=== PATIENT | female | born 1935 | race Caucasian/White ===

== ENCOUNTER → 2016-06-11 | Outpatient (CLI) | payer OTHER ==
[~2016-06-11] MED LIST: BIOF500T PO; CHLO50TA PO; CINN500C13 PO; CLOP1TAB15 PO; COEN1CAP28 PO; FENO54TA PO; FLAX12003 PO; KRIL1CAP24 PO; LEVO125T72 PO; LUTE15CA PO; MAGNESIUM PO; METO50TA16 PO; MIRA100T PO; MULT-610 PO; NIAC100T5 PO; OXYC-57 PO; POTA10CA28 PO; POTA20TA16 PO; RESV100C PO; RISE150T PO; TURM500T PO; VITA1TAB4 PO; VTMD1000 PO; ZNTT/150 PO; [UNRECOGNIZED DRUG - OTHER] PO; [UNRECOGNIZED DRUG - OTHER] PO
[2016-06-11 13:29] LABS: ALT/SGPT 19 U/L (12-78); AST/SGOT 16 U/L (15-37); BLOOD UREA NITROGEN 18 mg/dl (7-18); BUN/CREATININE RATIO 21.3 (10-20); CALCIUM 9.9 mg/dl (8.5-10.1); CARBON DIOXIDE 32 mmol/L (21-32); CHLORIDE 101 mmol/L (98-107); CHOLESTEROL 212 mg/dl (0-200); CREATININE 0.82 mg/dl (0.60-1.20); GLUCOSE 90 mg/dl (70-99); MAGNESIUM 1.6 mg/dl (1.8-2.4); POTASSIUM 3.4 mmol/L (3.5-5.1); SODIUM 139 mmol/L (136-145); TRIGLYCERIDES 107 mg/dl (0-150); VERY LOW DENSITY LIPOPROT CALC 21 mg/dl
[2016-06-11 13:39] LABS: HDL CHOLESTEROL 70 mg/dl; LDL CHOLESTEROL CALCULATED 121 mg/dl; THYROID STIMULATING HORMONE 0.407 uIu/ml (0.300-4.500)
== END | disposition home or self-care (01) ==
LOC: C.LABMFLN 11:59
PROVIDERS: ATTEND Family Medicine
DX: E78.5 Hyperlipidemia, unspecified (principal); E03.9 Hypothyroidism, unspecified; I10 Essential (primary) hypertension; M81.0 Age-related osteoporosis without current pathological fracture; E83.42 Hypomagnesemia

== ENCOUNTER → 2016-06-20 | Outpatient (CLI) | payer OTHER | END | disposition home or self-care (01) | LOC: C.LABMFLN 08:30 | PROVIDERS: ATTEND Family Medicine | DX: R35.0 Frequency of micturition (principal) ==

== ENCOUNTER 2016-08-16 06:53 | Inpatient (IN) | payer OTHER ==
[2016-08-14 08:28] VITALS: BMI 33.0
--- NOTE | 2016-08-14 09:16 | PAT Medication Instructions ---
Service Date August 14, 2016. Current Home Medication List Bioflavonoid Products (Jennifer-C), 1 TAB PO QPM Chlorthalidone (Chlorthalidone), 25 MG PO QAM Cholecalciferol (Vitamin D3), 1 TAB PO QPM Cinnamon (Cinnamon Extract), 1,000 MG PO QPM Clopidogrel (Plavix), 75 MG PO QAM Coenzyme Q10 (Ubidecarenone) (Co Q10), 200 MG PO QAM Fenofibrate (Tricor), 54 MG PO QAM Flaxseed (Linseed) (Flaxseed Oil), 1 CAP PO QAM Krill Oil (Krill Oil 500 mg), 1 CAP PO HS Levothyroxine Sodium (Synthroid), 125 MCG PO QAM Lutein-Zeaxanthin (Lutein), 1 CAP PO HS Metoprolol Tartrate (Lopressor) (Lopressor), 50 MG PO BID Mirabegron (Myrbetriq Er), 25 MG PO QPM Multiple Vitamins W/ Minerals (Centrum Adults), 1 TAB PO QAM Niacin (Niacin), 100 MG PO QPM Oxycodone/Acetaminophen 5MG/325MG (Percocet 5MG/325MG), 1 TABLET PO Q6H PRN for Pain Potassium Chloride (Micro-K Ext Rel), 20 MEQ PO 1200 Potassium Chloride (Micro-K Ext Rel), 40 MEQ PO 1700 Potassium Ext Rel (Klor-Con), 20 MEQ PO 2100 Ranitidine (Zantac), 150 MG PO QPM Resveratrol (Resveratrol), 1 CAP PO QAM Risedronate Sodium (Actonel), 1 TAB PO MONTHLY Turmeric (Curcuma Longa) (Turmeric), 1 TAB PO QPM Vitamin E (Vitamin E), 1 TAB PO QAM [Cholesterol Com], 1 TAB PO QID [Magnesium], 64 MG PO BID [Seaweed Extract], 1 TAB PO QPM Medication Instructions For Your Scheduled Surgery Clopidogrel (Plavix), 75 MG PO QAM (hold 5 days prior to surgery per surgeon and PCP recommendations) - Hold the following medications 5 days prior to surgery per surgeon instructions: Seaweed Extract, 1 TAB PO QPM Turmeric (Curcuma Longa) (Turmeric), 1 TAB PO QPM Vitamin E (Vitamin E), 1 TAB PO QAM Krill Oil (Krill Oil 500 mg), 1 CAP PO HS Flaxseed (Linseed) (Flaxseed Oil), 1 CAP PO QAM Coenzyme Q10 (Ubidecarenone) (Co Q10), 200 MG PO QAM - Hold the following medications starting today 08/14/16: Resveratrol (Resveratrol), 1 CAP PO QAM Cholesterol Complete 1 TAB PO QID Lutein-Zeaxanthin (Lutein), 1 CAP PO HS Cinnamon (Cinnamon Extract), 1,000 MG PO QPM - Hold the following medications day prior to and morning of surgery: Fenofibrate (Tricor), 54 MG PO QAM - Hold the following medications evening prior to surgery: Niacin (Niacin), 100 MG PO QPM - Hold the following medications the morning of surgery: Risedronate Sodium (Actonel), 1 TAB PO MONTHLY (can take day after or day before surgery) Magnesium, 64 MG PO BID Potassium Ext Rel (Klor-Con) Multiple Vitamins W/ Minerals (Centrum Adults), 1 TAB PO QAM Chlorthalidone (Chlorthalidone), 25 MG PO QAM - Take the following medications the morning of surgery with a sip of water: Oxycodone/Acetaminophen 5MG/325MG (Percocet 5MG/325MG), 1 TABLET PO Q6H PRN for Pain (can take up to four hours prior to surgery if needed) Metoprolol Tartrate (Lopressor) (Lopressor), 50 MG PO BID Levothyroxine Sodium (Synthroid), 125 MCG PO QAM - Take the following medications as scheduled the night before surgery: Ranitidine (Zantac), 150 MG PO QPM Magnesium, 64 MG PO BID Oxycodone/Acetaminophen 5MG/325MG (Percocet 5MG/325MG), 1 TABLET PO Q6H PRN for Pain Mirabegron (Myrbetriq Er), 25 MG PO QPM Metoprolol Tartrate (Lopressor) (Lopressor), 50 MG PO BID Cholecalciferol (Vitamin D3), 1 TAB PO QPM Bioflavonoid Products (Jennifer-C), 1 TAB PO QPM If you have any questions please call us at [phone] or [phone] ( Aniya) or [phone]
[2016-08-14 10:03] LABS: PROTHROMBIN TIME (PATIENT) 10.7 SECONDS (9.0-12.0)
[2016-08-14 10:51] LABS: ESTIMATED AVERAGE GLUCOSE 103 mg/dl; HA1C FLAG Normal (Normal)
--- NOTE | 2016-08-15 15:42 | HISTORY & PHYSICAL EXAMINATION ---
DATE OF ADMISSION: 08/16/2016 CHIEF COMPLAINT: Left shoulder injury. HISTORY OF PRESENT ILLNESS: This is an 81-year-old female patient of Dr. Pollard complaining of a left shoulder injury status post a fall at her home. She has been diagnosed with a fractured proximal humerus which was confirmed with CT scanning. The patient wishes to proceed with a left fracture reverse total shoulder arthroplasty. PAST MEDICAL HISTORY: Heart murmur, hypertension, hypercholesterolemia, history of TIA, hypothyroidism, spine problems, sciatica, acid reflux, history of basal cell carcinoma. SOCIAL HISTORY: Nonsmoker, nondrinker. FAMILY HISTORY: Noncontributory. REVIEW OF SYSTEMS: The patient complains of left shoulder pain and decreased function. Otherwise, denies any shortness of breath, chest pain, nausea, vomiting or other joint complaints. MEDICATIONS: Include Synthroid 125 mcg on the first day of each month, Actonel 150 mg daily, magnesium 64 mg daily, Plavix 75 mg daily, metoprolol 50 mg daily, CoQ10 200 mg p.o. daily, vitamin E daily, fenofibrate 54 mg daily, cholesterol complete 4 tablets daily, flaxseed oil daily, Centrum Silver daily, cinnamon, aiden potassium, brown seaweed, potassium chloride, vitamin D, gluten, Krill oil daily, chlorthalidone 25 mg daily, Turmeric 500 mg daily, metoprolol 50 mg daily, niacin daily, ranitidine 150 mg daily, magnesium daily, Percocet as needed and Myrbetriq for overactive bladder as needed. ALLERGIES: INCLUDE PENICILLIN. PHYSICAL EXAMINATION: GENERAL: Well-developed, well-nourished 81-year-old female of Dr. Pollard in no acute distress. She is alert and oriented x3 and pleasant. HEAD, EYES, EARS, NOSE, AND THROAT: Normocephalic, atraumatic. Extraocular motions are intact. Pupils are equal and reactive to light. HEART: Regular rate and rhythm, no murmurs appreciated. LUNGS: Clear. ABDOMEN: Soft, nontender, bowel sounds present. EXTREMITIES: Left shoulder range of motion and strength were deferred due to her injury. She did have some bruising and ecchymosis over the shoulder. She had good range of motion of her elbow, wrist and hand. Neurologically and neurovascularly she is intact in her left upper extremity. DIAGNOSES: Left shoulder proximal humerus fracture. She has a history of a heart murmur, hypertension, hypercholesterolemia, TIA, hypothyroidism, spine problems, sciatica, acid reflux, basal cell carcinoma. PLAN: The patient was advised of her diagnosis. Indications, risks, benefits, and postop course have all been reviewed. The patient wishes to proceed with a left fracture reverse total shoulder arthroplasty. Necessary consent forms, preoperative testing and clearances will be obtained. YOLANDA
[2016-08-16] VITALS (10 sets, daily range): BP systolic 101–168; BP diastolic 63–76; PULSE 58–75; TEMP 36.3–36.5; O2SAT 92–96; Ht 144.8 cm; Wt 68.2 kg
[~2016-08-16] VITALS: Ht 144.8 cm; Wt 68.2 kg
[~2016-08-16 06:53] MED LIST changes: +ACETAMINOPHEN 500 MG TAB PO SCH; +CLINDAMYCIN 600 MG/54 ML D5W 54 ML IV SCH; +CeleBREX 200 MG CAP PO SCH; +DEXAMETHASONE 4 MG TAB PO SCH; +FAMOTIDINE 20 MG TAB PO SCH; +GABAPENTIN 300 MG CAP PO SCH; +LACTATED RINGER'S 1000ML IV SCH; +METOCLOPRAMIDE HCL 10 MG TAB PO SCH
[2016-08-16] MEDS ORDERED: ROPIVACAINE 0.5% 5 MG/ML 30 ML VIAL ONE (07:03)
[2016-08-16] MEDS ORDERED: BUPIVACAINE/EPINEPHRINE 0.25% 1:200,000 30 ML VIAL ONE (07:03)
[2016-08-16] MEDS ORDERED: CLONIDINE HCL 100 MCG/ML SYRINGE ONE (07:04)
[2016-08-16] MEDS ORDERED: VANCOMYCIN 1GM/270ML NSS 270 ML IV SCH (07:30)
[2016-08-16] MEDS ORDERED: PHENYLEPHRINE 100MCG/ML 5ML SYR IV PRN (08:45)
[2016-08-16] MEDS ORDERED: FENTANYL CITRATE INJ 50 MCG/1 ML 2 ML VIAL IV PRN (08:45)
[2016-08-16] MEDS ORDERED: ATROPINE SULFATE 0.1 MG/ML 5ML SYR IV PRN (08:45)
[2016-08-16] MEDS ORDERED: LABETALOL HCL IV 5 MG/ML 20ML IV PRN (08:45)
[2016-08-16] MEDS ORDERED: ONDANSETRON INJ 2 MG/ML 2 ML VIAL IV PRN ×2 (08:45→14:00)
[2016-08-16] MEDS ORDERED: HYDROmorphone INJ 2 MG/ML SYR/VIAL IV PRN (08:45)
[2016-08-16] MEDS ORDERED: NALOXONE HCL 0.4 MG/1 ML VIAL/CARP IV PRN ×2 (08:45→14:00)
[2016-08-16] MEDS ORDERED: MEPERIDINE HCL 25 MG/ML CARP IV PRN (08:45)
[2016-08-16] MEDS ORDERED: EpHEDrine SULFATE INJ 50 MG/ML AMP IV PRN (08:45)
[2016-08-16] MEDS ORDERED: FLUMAZENIL 0.1 MG/1 ML 10 ML VIAL IV PRN (08:45)
[2016-08-16] MEDS ORDERED: LIDOCAINE HCL 2% 2 ML VIAL (20MG/ML) ONE (09:05)
[2016-08-16] MEDS ORDERED: ROCURONIUM BROMIDE 10 MG/ML 5 ML VIAL ONE ×2 (09:05→11:43)
[2016-08-16] MEDS ORDERED: MIDAZOLAM HCL 1 MG/ML 2ML VIAL ONE (09:05)
[2016-08-16] MEDS ORDERED: FENTANYL CITRATE INJ 50 MCG/1 ML 2 ML VIAL ONE ×2 (09:05→14:26)
[2016-08-16] MEDS ORDERED: NEOSTIGMINE METHYLSULFATE 5 MG/5 ML SYR ONE (09:05)
[2016-08-16] MEDS ORDERED: PROPOFOL IV EMULSION 10 MG/ML 20 ML VIAL IV ONE (09:05)
[2016-08-16] MEDS ORDERED: SUCCINYLCHOLINE CHLORIDE 20 MG/ML 10 ML VIAL IV ONE (09:05)
[2016-08-16] MEDS ORDERED: GLYCOPYRROLATE INJ 0.2 MG/ML VIAL ONE (09:05)
[2016-08-16] MEDS ORDERED: EpHEDrine SULFATE 50MG/5ML SYR ONE (09:07)
[2016-08-16] MEDS ORDERED: NURSING VERBAL MED ORDER ONE (09:45)
--- NOTE | 2016-08-16 09:54 | History & Physical Bridge Note ---
H&P Re-Evaluation Bridge Note: I have examined the patient, reviewed the History & Physical and in the interval since the performance of the History & Physical I have noted the following changes of clinical significance: No changes noted
[2016-08-16] MEDS ORDERED: BACITRACIN 50000 UNIT VIAL ONE (10:09)
[2016-08-16] MEDS ORDERED: CLINDAMYCIN 600 MG/54 ML D5W IV ONE (10:15)
[2016-08-16] MEDS ORDERED: PHENYLEPHRINE HCL INJ 10 MG/ML VIAL ONE (11:20)
[2016-08-16] MEDS ORDERED: EpINEphrine HCL INJ 1 MG/ML 5ML SYRINGE ONE (12:35)
[2016-08-16] MEDS ORDERED: ONDANSETRON INJ 2 MG/ML 2 ML VIAL ONE (13:05)
[2016-08-16] MEDS ORDERED: DEXAMETHASONE SOD INJ 4 MG/ML VIAL ONE (13:05)
--- NOTE | 2016-08-16 13:37 | [facility] Operative Report ---
Operative Report Operative Date Aug 16, 2016. Pre-Operative Diagnosis Left shoulder proximal humerus fracture displaced Post-Operative Diagnosis same ,comminution and osteopenia Procedure(s) Performed reversed total shoulder replacement for fracture with bone grafting and repair of tuberosities and biceps tenodesis Surgeon Dr. Katie Lopez Document Control Specialist Surgeon(s) Michael Jessica PA-C Estimated Blood Loss 300mL Findings as above Specimens A: left humeral head Drains 2 hemovac Anesthesia general and regional Complication(s) None Disposition Recovery Room / PACU Indications displaced humeral head fracture delayed healing and pain I attest to the content of the Intraoperative Record and any orders documented therein. Any exceptions are noted below.
[2016-08-16] MEDS ORDERED: MoRPHine SULFATE 2 MG/ML CARP IV PRN (14:00)
[2016-08-16] MEDS ORDERED: MAGNESIUM HYDROXIDE SUSP 30 ML UDC PO PRN (14:00)
[2016-08-16] MEDS ORDERED: BISACODYL 10 MG SUPP PR PRN (14:00)
[2016-08-16] MEDS ORDERED: ZOLPIDEM TARTRATE 5 MG TAB PO PRN (14:00)
[2016-08-16] MEDS ORDERED: SOD PHOSPHATE/SOD BIPHOSPHATE ENEMA 132 ML BTL PR PRN (14:00)
--- NOTE | 2016-08-16 14:34 | DIAGNOSTIC IMAGING REPORT ---
LEFT SHOULDER MIN 2 VIEWS ROUTINE CLINICAL HISTORY: Postop examination COMPARISON: None. DISCUSSION: There are postsurgical changes of a reverse total left shoulder arthroplasty. There is no dislocation. Overlying skin dayna and surgical drains are visualized. There is air within the soft tissues consistent with history of recent surgery. There are left basilar atelectatic changes. IMPRESSION: Postsurgical changes of a reverse total left shoulder arthroplasty. No fractures or dislocations identified. Electronically signed by: Josiah Sierra M.D. 08/16/2016 2:33 PM Dictated Date/Time: 08/16/2016 2:32 PM
--- NOTE | 2016-08-16 14:46 | OPERATIVE REPORT ---
DATE OF OPERATION: 08/16/2016 INDICATION FOR PROCEDURE: The patient is an 81-year-old female who injured her left shoulder and sustained a proximal humerus fracture. She was seen by another orthopedic surgeon. He was attempting to treat this conservatively. She is 3-4 weeks post-injury and has 100% displaced proximal humerus fracture with some periosteal healing that is occurring but definitely not a union. We discussed the patient the option of letting her go onto a malunion if possible or doing delayed reverse replacement or just proceeding with reverse shoulder replacement at this point. If she had a malunion she would have significant decreased function in her shoulder and she chose to proceed with replacement and improve her level of function more predictably. PREOPERATIVE DIAGNOSIS: Left displaced proximal humerus fracture with delayed healing. POSTOPERATIVE DIAGNOSES: Same with comminution with biceps tendon impingement across the fracture site. Partial avulsion of pectoralis tendon with comminuted fragment. PROCEDURE: Fracture reversed total shoulder arthroplasty with tuberosity repair and bone grafting. SURGEON: Dr. Lopez. BOOM TRUCK DRIVER: Michael Jessica PA-C. ANESTHESIA: Regional block general. OPERATION AND FINDINGS: OPERATIVE PROCEDURE: The patient was taken to operating room. She had a regional block anesthetic placed first, placed under general anesthetic. Placed in a 40 degree beach chair position. A towel was placed in the medial border of her left scapula. She was translated to left side of the bed. Her shoulder was moved off the bed as necessary. She had a foam headrest placed. She had protective eyewear placed. She had a Beltre catheter placed. She had TEDs and SCDs placed. All extremities were padded. Her left shoulder was then sterilely prepped and draped with ChloraPrep. An anterior deltopectoral approach was performed to the left shoulder. Longitudinal incision was made in the deltopectoral interval. Skin was incised sharply. The subcutaneous tissues were divided down to the fascia. The deltopectoral interval was identified and the cephalic vein was dissected out and retracted laterally with the deltoid. The pectoralis was then retracted medially. We dissected down through the deltopectoral area, we noted there was a large fragment of comminuted bone anterior to the shaft which in part was part of the attachment of the upper pectoralis tendon. We did release some of the pec tendon off of this fragment for some better exposure and we did identify the biceps tendon at that time. The biceps tendon was noted to be tenting over the fracture site. The humeral head was displaced laterally and the humeral shaft anteromedially in direction. There were some bone context still and there was some callus forming, but the head was essentially off the shaft. The periosteum was stripped slightly around the proximal humeral shaft so we could identify the shaft location leaving the deltoid attachment and pec attachment intact, otherwise. Then I made an incision over the biceps tendon sheath, extending it up through the bicipital groove and down to the rotator interval down to the glenoid. Then, the biceps tendon was tenodesed to the pectoralis tendon with #2 FiberWire [id number] sutures and the proximal biceps was released. The fracture site was mobile and was not completely solidly healed, but there was a little bit of early healing. The Damon elevator was used to free up the motion of the shaft from the humeral head. Then I osteotomized the lesser tuberosity leaving a good piece of lesser tuberosity along with the subscapularis tendon after we placed a traction suture into the subscapularis tendon with #1 Vicryl. After the osteotomy was completed we were able to rotate the head and better visualized the superior greater tuberosity and posterior rotator cuff attachment. Rotator cuff was completely intact. We released about a cm of the supraspinatus just to get better exposure and then went ahead and osteotomized the greater tuberosity off the articular surface of the humeral head, maintaining the remaining attachment of the rotator cuff tendons posteriorly. Then the humeral head fragment was removed. Some of the comminuted pieces of bone were saved for bone graft. There was a copious irrigation was performed to washout of the glenoid. Glenoid had no damage was completely intact. With retractors placed. The glenoid labrum was resected circumferentially. The biceps tendon was released off the superior glenoid. Then, the articular surface of the humeral head was curetted down to bone. We did do an anterior inferior, posterior inferior capsular release on bone with electrocautery and a Damon elevator and also freed up the triceps tendon. After those releases were completed, I chose to do the Tornier reversed total shoulder arthroplasty system with the fracture reversed. We used the Aequalis glenoid components. We used the 25 mm baseplate. The guide for the central hole was placed followed by the reamer, placed a 10 degree inferior tilt. Then, the hole was widened then the baseplate was impacted into position and transfixed with anteroposterior compression screws and superior and inferior locking screws. Compression screws were 20 and 23 mm, superior and inferior locking screws were 23 and 26 mm in length. There was excellent fixation with screws. We used the fan reamer for placement of the glenosphere. After irrigating all bone fragments out the glenosphere was impacted onto the baseplate and then screwed tightly and noted to be secure. Then attention was taken to the humeral preparation. Humerus was repaired by sizing the canal with reamers which was a 9 mm, which was appropriate and matched our preoperative templating. Then we went ahead with the 9 trial fracture stem. We set that to the appropriate depth and then did a trial reduction with a +6 insert trial and there was excellent stability through 130 degrees of forward elevation, 90 degrees of abduction and about 45 degrees to 50 degrees of external rotation without any instability and good soft tissue tension on the deltoid and the conjoined tendon and no shuck with longitudinal traction. The trials were removed and then the height of that was documented in rotation at 20 degrees of retroversion was documented and marked on the humeral shaft with electrocautery. Then the trial was removed and we placed 2 drill holes through the shaft, placed two #5 FiberWire sutures through those for later repair of the tuberosities. Then we placed four #5 FiberWire sutures around the posterior rotator cuff and greater tuberosity. Then we measured to appropriate depth then placed a cement restrictor into the canal, irrigated out the canal and used epinephrine soak tampon in the canal. I used the bone harvester to harvest bone graft from the humeral head. This was placed into the 9 mm fracture reverse stem. There was a hole in the stem for bone grafting and this was fit perfectly in that. Then I harvested the rest the humeral head for further bone graft. Then we used Palacos cement which was vacuum mixed and went ahead and cemented the stem in appropriate height and retroversion at 20 degrees. The stem was held in position until the cement cured. All the proximal cement was curetted out from around the bone grafted areas so we could bone graft the tuberosities to the stem. After the cement cured, the polyethylene +6 mm insert was impacted onto the stem. Then the humerus was reduced to the glenosphere. Stability was documented to be satisfactory. Then the tuberosities were repaired. We bone grafted under the posterior greater tuberosity first between the shaft and the neck and the fragments of the posterior cuff and then sutured around the neck of the stem with the #5 FiberWire sutures. Two of those were sutured around the greater tuberosity, securing that to the prosthetic. We checked rotation, internal and external rotation, that repair was secure. Then, 2 more of the sutures were passed around the neck of the prosthesis and around the lesser tuberosity through the subscap tendon. Then these were tied down repairing the tuberosities to each other after further bone graft was placed between these tuberosity fragments anteriorly and the proximal shaft and proximal prosthetic. We also placed bone graft between the 2 tuberosities as well. Then the 2 previous sutures that were placed into the shaft were placed in a [id number] configuration through the cuff and tuberosity fragments suturing the tuberosities to the shaft. The Vicryl sutures that we placed for traction were tied to each other for additional support. The arm was secure and stable with no tension on the repair through 45 degrees of external rotation, 90 degrees of abduction and 130 degrees of forward elevation with stable repair. The pectoralis tendon was repaired with [id number] #2 FiberWire. The joint was copiously irrigated out with antibiotic solution and bacitracin. The deltopectoral interval was closed with [id number] #1 Vicryl sutures. This was closed over 2 Hemovac drains. The subcutaneous tissues were closed with interrupted 2-0 Vicryl, skin closed with dayna. Sterile dressings applied. The patient had about 300 mL of blood loss and tolerated the procedure well. MASOOD Marino was my first aid trainer. He functioned as first aid trainer for the entire procedure. He assisted in patient positioning, prepping, draping, arm positioning, instrument management, suture management during the reconstruction. He performed the final subcutaneous and skin closure and will participate in the postoperative care of the patient. I attest to the content of the Intraoperative Record and any orders documented therein. Any exception s are noted below.
--- NOTE | 2016-08-16 15:00 | Anesthesiology Progress Note ---
Anesthesia Post Op Note Date & Time Aug 16, 2016 at 14:58 Vital Signs Pain Intensity: 3 Vital Signs Past 12 Hours Date Time Temp Pulse Resp B/P (MAP) Pulse Ox O2 Delivery O2 Flow Rate FiO2 08/16/16 13:47 36.4 73 16 166/70 95 Mask 10 08/16/16 07:42 36.4 58 20 168/72 95 Room Air Notes Mental Status: alert / awake / arousable, participated in evaluation Pt Amnestic to Procedure: Yes Nausea / Vomiting: adequately controlled Pain: adequately controlled Airway Patency, RR, SpO2: stable & adequate BP & HR: stable & adequate Hydration State: stable & adequate Anesthetic Complications: no major complications apparent The patient has been hemodynamically stable throughout. She is awake and comfortable in the PACU.
[2016-08-16] MEDS: SODIUM CHLORIDE 0.45% 1000ML 1,000 ML IV SCH (16:38)
[2016-08-16] MEDS: ACETAMINOPHEN 500 MG TAB PO SCH ×2 (16:41→21:45)
[2016-08-16] MEDS: POTASSIUM CHLORIDE 20 MEQ TABCR PO SCH ×2 (16:52→20:34)
--- NOTE | 2016-08-16 17:53 | Medical Consult ---
Consultation Date of Consultation: Aug 16, 2016. Attending Physician: Aniket Lopez M.D. Reason for Consultation: post op management History of Present Illness Pt is a 81 yo female patient of Dr. Lopez's complaining of left shoulder injury s/p fall. Imaging determined fractured proximal humerus. Pt underwent left fracture reverse total shoulder arthroplasty and is consulted to our services for post op management. Pt has hx of hypertension, hypercholesterolemia, TIA, hypothyroidism, sciatica, GERD, basal cell carcinoma. Pt denies any fevers, chills, N/V/D, abd pain, chest pain or urinary sx. Social History Smoking Status: Never Smoker Allergies Coded Allergies: Penicillins (Verified Allergy, Unknown, RASH, HIVES, 08/16/16) Sulfamethoxazole w/Trimethoprim (Verified Allergy, Unknown, rash/hives, 08/16/16) Uncoded Allergies: Ubiquinol (Allergy, Unknown, Per PCP records , 08/14/16) Current Inpatient Medications Current Inpatient Medications Medications (Trade) Dose Ordered Sig/Yuan Route Start Time Stop Time Status Last Admin Dose Admin Lactated Ringer's 1,000 ml @ 15 mls/hr Q24H IV 08/16/16 06:00 08/17/16 05:59 08/16/16 08:05 15 MLS/HR Acetaminophen (Tylenol Tab) 1,000 mg PREOP PO 08/16/16 06:00 08/16/16 18:00 08/16/16 08:05 1,000 MG Dexamethasone (Decadron Tab) 8 mg PREOP PO 08/16/16 06:00 08/16/16 18:00 08/16/16 08:05 8 MG Famotidine (Pepcid Tab) 20 mg PREOP PO 08/16/16 06:00 08/16/16 18:00 08/16/16 08:05 20 MG Gabapentin (Neurontin Cap) 300 mg PREOP PO 08/16/16 06:00 08/16/16 18:00 08/16/16 08:04 300 MG Metoclopramide HCl (Reglan Tab) 10 mg PREOP PO 08/16/16 06:00 08/16/16 18:00 08/16/16 08:04 10 MG Cholecalciferol (Vitamin D Tab) 1,000 inter.unit QPM PO 08/16/16 21:00 09/15/16 20:59 Clopidogrel Bisulfate (plAVix TAB) 75 mg QAM PO 08/17/16 09:00 09/16/16 08:59 Levothyroxine Sodium (Synthroid Tab) 125 mcg DAILYBB PO 08/17/16 06:00 09/16/16 05:59 Metoprolol Tartrate (Lopressor Tab) 50 mg BID PO 08/16/16 21:00 09/15/16 20:59 Mirabegron (Myrbetriq Er) 25 mg QPM PO 08/16/16 21:00 09/15/16 20:59 Potassium Chloride (Klor-Con Tab) 20 meq 1200 PO 08/17/16 12:00 09/16/16 11:59 Potassium Chloride (Klor-Con Tab) 40 meq 1700 PO 08/16/16 17:00 09/15/16 16:59 08/16/16 16:52 40 MEQ Potassium Chloride (Klor-Con Tab) 20 meq 2100 PO 08/16/16 21:00 09/15/16 20:59 Ranitidine HCl (zANTac TAB) 150 mg QPM PO 08/16/16 21:00 09/15/16 20:59 Chlorthalidone (Hygroton Tab) 25 mg DAILY PO 08/17/16 09:00 09/16/16 08:59 Miscellaneous Information (Order Awaiting Action) 1 ea QS N/A 08/16/16 16:00 09/15/16 15:59 Miscellaneous Information (Order Awaiting Action) 1 ea QS N/A 08/16/16 16:00 09/15/16 15:59 [id number] Acetate (Vitamin E Cap) 400 interunit QAM PO 08/17/16 09:00 09/16/16 08:59 Clindamycin Phosphate 600 mg/ Dextrose 54 ml @ 100 mls/hr Q8H IV 08/16/16 18:00 08/17/16 02:33 Diphenhydramine HCl (Benadryl Cap) 25 mg Q8 PRN PO 08/16/16 14:00 09/15/16 13:59 Zolpidem Tartrate (Ambien Tab) 5 mg HSZ PRN PO 08/16/16 14:00 09/15/16 13:59 Ondansetron HCl (Zofran Inj) 4 mg Q6H PRN IV 08/16/16 14:00 09/15/16 13:59 Pantoprazole Sodium (Protonix Tab) 40 mg QAM PO 08/17/16 09:00 09/16/16 08:59 Oxycodone HCl (Roxicodone Immediate Rel Tab) `1-2 TABS FOR PAIN `1 TAB... Q4H PRN PO 08/16/16 14:00 08/30/16 13:59 Acetaminophen (Tylenol Tab) 1,000 mg Q8 PO 08/16/16 16:00 09/15/16 15:59 08/16/16 16:41 1,000 MG Morphine Sulfate (MoRPHine SULFATE INJ) 2 mg Q2H PRN IV 08/16/16 14:00 08/30/16 13:59 Naloxone HCl (Narcan Inj) 0.1 mg Q2M PRN IV 08/16/16 14:00 09/15/16 13:59 Magnesium Hydroxide (Milk Of Magnesia Susp) 30 ml Q6H PRN PO 08/16/16 14:00 09/15/16 13:59 Bisacodyl (Dulcolax Supp) 10 mg DAILY PRN HI 08/16/16 14:00 09/15/16 13:59 Sodium Biphosphate/ Sodium Phosphate (Fleet Enema) 132 ml DAILY PRN HI 08/16/16 14:00 09/15/16 13:59 Docusate Sodium (coLACE CAP) 100 mg BID PO 08/16/16 21:00 09/15/16 20:59 Multivitamins (Multivitamin Tab) 1 tab DAILY PO 08/17/16 09:00 09/16/16 08:59 Sodium Chloride 1,000 ml @ 100 mls/hr Q10H IV 08/16/16 14:00 09/15/16 13:59 08/16/16 16:38 100 MLS/HR Morphine Sulfate (MoRPHine SULFATE INJ) 4 mg Q2H PRN IV 08/16/16 14:30 08/30/16 14:29 Review of Systems Constitutional: No fever, No chills, No sweats, No weakness Respiratory: No cough, No sputum, No wheezing, No shortness of breath, No dyspnea on exertion Cardiovascular: No chest pain, No orthopnea, No PND, No edema Abdomen: No pain, No nausea, No vomiting, No diarrhea Musculoskeletal: No joint pain, No muscle pain, No swelling Genitourinary - Female: No dysuria, No urinary frequency, No urinary urgency, No urinary incontinence, No urinary retention Neurologic: No memory loss, No paralysis, No weakness, No numbness/tingling Psychiatric: No depression symptoms, No anhedonism, No anxiety Integumentary: No rash, No itch Physical Exam Date Time Temp Pulse Resp B/P (MAP) Pulse Ox O2 Delivery O2 Flow Rate FiO2 08/16/16 16:20 36.4 61 16 123/68 (86) 95 Nasal Cannula 3.0 08/16/16 15:50 36.4 62 16 125/74 (91) 95 Nasal Cannula 3.0 08/16/16 15:20 36.3 62 16 114/67 (83) 93 Nasal Cannula 3.0 08/16/16 15:20 94 Nasal Cannula 3.0 08/16/16 15:20 93 Nasal Cannula 3.0 08/16/16 15:08 58 13 94 08/16/16 15:08 55 13 08/16/16 15:07 115/58 08/16/16 15:03 62 16 100 08/16/16 15:03 61 16 08/16/16 15:02 117/59 08/16/16 14:58 60 13 96 08/16/16 14:58 60 13 08/16/16 14:57 58 17 122/55 100 08/16/16 14:57 59 17 08/16/16 14:55 36.2 60 16 123/55 99 Nasal Cannula 4 08/16/16 14:52 61 14 08/16/16 14:52 61 14 123/55 97 08/16/16 14:47 59 12 112/66 100 08/16/16 14:47 59 12 08/16/16 14:42 63 16 08/16/16 14:42 64 16 119/63 100 08/16/16 14:37 63 15 08/16/16 14:37 63 15 109/56 98 08/16/16 14:32 65 19 113/72 97 08/16/16 14:32 65 19 08/16/16 14:27 63 17 125/74 100 08/16/16 14:27 62 17 08/16/16 14:22 66 23 135/81 98 08/16/16 14:22 65 23 08/16/16 14:17 16 08/16/16 14:17 64 16 138/69 08/16/16 14:12 66 23 08/16/16 14:12 66 23 136/76 90 08/16/16 14:07 65 18 08/16/16 14:07 65 18 156/71 96 08/16/16 14:02 67 24 145/72 93 08/16/16 14:02 67 24 08/16/16 13:57 68 17 155/75 94 08/16/16 13:57 68 17 08/16/16 13:52 70 16 08/16/16 13:52 70 16 158/75 93 08/16/16 13:48 166/70 08/16/16 13:47 36.4 73 16 166/70 95 Mask 10 08/16/16 07:42 36.4 58 20 168/72 95 Room Air General Appearance: WD/WN, no apparent distress Head: normocephalic, atraumatic Eyes: normal inspection, PERRL, EOMI Neck: supple, no adenopathy, thyroid normal, no JVD Respiratory/Chest: chest non-tender, lungs clear, normal breath sounds, no respiratory distress Cardiovascular: regular rate, rhythm, no edema, no gallop, no JVD Abdomen/GI: normal bowel sounds, non tender, soft, no organomegaly Back: normal inspection, no CVA tenderness, no muscle spasm, normal range of motion Extremities/Musculoskelatal: normal inspection, no calf tenderness, normal capillary refill, no pedal edema Neurologic/Psych: no motor/sensory deficits, alert, normal mood/affect, oriented x 3 Laboratory Results Last 24 Hours Test 08/16/16 17:34 Assessment & Plan Pt is a 81 yo female who sustained fall at home with left humerus fx and is consulted to our services s/p repair and post op management. Cont supportive care at this time. Pain controlled with morphine PRN. Disp and DVT ppx per primary team. Check CBC to monitor for acute blood loss anemia. HTN - Controlled, cont chlorthalidone Hypothyroidism - Cont synthroid OAB - Cont myrbetriq Hx of TIA - Cont plavix
[2016-08-16 18:03] LABS: BASO % 0.1 %; BASO ABS # 0.01 K/uL (0-0.2); COMPLETE YES; HEMATOCRIT 36.5 % (37-47); IG% 0.2 %; LYMPH % 5.4 %; LYMPH ABS # 0.76 K/uL (1.2-3.4); MEAN CELL VOLUME 93.1 fL (80-100); MEAN CORPUSCULAR HEMOGLOBIN 30.4 pg (25-34); MEAN CORPUSCULAR HGB CONC 32.6 g/dl (32-36); MEAN PLATELET VOLUME 9.4 fL (7.4-10.4); MONO % 2.8 %; NEUT % 91.5 %; PLATELET COUNT 209 K/uL (130-400); RED BLOOD COUNT 3.92 M/uL (4.2-5.4); WHITE BLOOD COUNT 13.97 K/uL (4.8-10.8)
[2016-08-16] MEDS: CLINDAMYCIN IV 600 MG in DEXTROSE 5% 50ML 50 ML IV SCH (18:16)
[2016-08-16 18:23] LABS: CALCIUM 8.7 mg/dl (8.5-10.1); CREATININE 0.8 mg/dl (0.60-1.20)
[2016-08-16] MEDS: DOCUSATE SODIUM 100 MG CAP PO SCH (20:34)
[2016-08-16] MEDS: MIRABEGRON ER 25 MG TAB PO SCH (20:35)
[2016-08-16] MEDS: METOPROLOL TARTRATE 50 MG TAB PO SCH (20:35)
[2016-08-16] MEDS: CHOLECALCIFEROL 1000 INTER.UNIT TAB PO SCH (20:35)
[2016-08-16] MEDS: RANITIDINE HCL 150 MG TAB PO SCH (20:35)
[2016-08-16] MEDS ORDERED: NURSING DECISION MEDICATION ORDER SCH (20:45)
[2016-08-16] MEDS ORDERED: COUGH DROP (SUGAR FREE) LOZ 24 LOZ/1 BOX ONE (20:54)
[2016-08-16] MEDS ORDERED: NIACIN 100 MG PO SCH (21:00)
[2016-08-16] MEDS ORDERED: KRILL OIL PO SCH (21:00)
[2016-08-16] MEDS ORDERED: NON-FORMULARY MEDICATION (Lutein-Zeaxanthin (Lutein) 1 CAP) PO SCH (21:00)
[2016-08-16] MEDS ORDERED: NON-FORMULARY MEDICATION (Turmeric (Curcuma Longa) (Turmeric) 1 TAB) PO SCH (21:00)
[2016-08-16] MEDS ORDERED: COUGH DROP (SUGAR FREE) LOZ 24 LOZ/1 BOX PO PRN (21:00)
[2016-08-17] VITALS (8 sets, daily range): BP systolic 100–187; BP diastolic 59–87; PULSE 75–83; TEMP 36.3–37.2; O2SAT 91–97
[2016-08-17] MEDS: CLINDAMYCIN IV 600 MG in DEXTROSE 5% 50ML 50 ML IV SCH (01:37)
[2016-08-17] MEDS: SODIUM CHLORIDE 0.45% 1000ML 1,000 ML IV SCH ×3 (01:38→20:25)
[2016-08-17 05:46] LABS: HEMATOCRIT 31.4 % (37-47); MEAN CELL VOLUME 92.1 fL (80-100); MEAN CORPUSCULAR HEMOGLOBIN 30.2 pg (25-34); MEAN CORPUSCULAR HGB CONC 32.8 g/dl (32-36); MEAN PLATELET VOLUME 9.4 fL (7.4-10.4); PLATELET COUNT 196 K/uL (130-400); RED BLOOD COUNT 3.41 M/uL (4.2-5.4); WHITE BLOOD COUNT 12.23 K/uL (4.8-10.8)
[2016-08-17] MEDS: LEVOTHYROXINE 125 MCG TAB PO SCH (05:53)
[2016-08-17] MEDS: ACETAMINOPHEN 500 MG TAB PO SCH ×3 (05:53→21:36)
[2016-08-17 06:25] LABS: BUN/CREATININE RATIO 20.4 (10-20); CREATININE 0.85 mg/dl (0.60-1.20); POTASSIUM 4.3 mmol/L (3.5-5.1)
[2016-08-17] MEDS: OXYCODONE HCL IR 5 MG TAB (IMMEDIATE RELEASE) PO PRN ×2 (07:28→11:53)
--- NOTE | 2016-08-17 07:29 | Orthopedic Progress Note ---
Orthopedic Progress Note Date of Service Aug 17, 2016. Subjective Post OP Day: 1 Reports: feeling well, Denies: complaints, chest pain, SOB, nausea / vomiting, light headedness, calf pain Additional Notes: Biggest issue is pain. Objective N/V intact, capillary refill less than 2 sec., dressing C/D/I, A&O x3 Sling in tact, fingers mobile. Date Time Temp Pulse Resp B/P (MAP) Pulse Ox O2 Delivery O2 Flow Rate FiO2 08/17/16 03:40 36.3 76 16 100/59 (73) 92 Room Air 08/16/16 22:52 36.4 75 16 110/68 (82) 92 Room Air 08/16/16 21:47 92 Room Air 08/16/16 20:33 69 101/63 (76) 08/16/16 19:36 36.4 68 16 112/68 (83) 92 Nasal Cannula 2.0 08/16/16 19:25 Nasal Cannula 2.0 08/16/16 18:10 36.5 73 18 106/63 (77) 94 Nasal Cannula 2.0 08/16/16 17:20 36.5 60 16 124/76 (92) 96 Nasal Cannula 3.0 08/16/16 16:20 36.4 61 16 123/68 (86) 95 Nasal Cannula 3.0 08/16/16 15:50 36.4 62 16 125/74 (91) 95 Nasal Cannula 3.0 08/16/16 15:20 36.3 62 16 114/67 (83) 93 Nasal Cannula 3.0 08/16/16 15:20 94 Nasal Cannula 3.0 08/16/16 15:20 93 Nasal Cannula 3.0 08/16/16 15:08 58 13 94 08/16/16 15:08 55 13 08/16/16 15:07 115/58 08/16/16 15:03 62 16 100 08/16/16 15:03 61 16 08/16/16 15:02 117/59 08/16/16 14:58 60 13 96 08/16/16 14:58 60 13 08/16/16 14:57 58 17 122/55 100 08/16/16 14:57 59 17 08/16/16 14:55 36.2 60 16 123/55 99 Nasal Cannula 4 08/16/16 14:52 61 14 08/16/16 14:52 61 14 123/55 97 08/16/16 14:47 59 12 112/66 100 08/16/16 14:47 59 12 08/16/16 14:42 63 16 08/16/16 14:42 64 16 119/63 100 08/16/16 14:37 63 15 08/16/16 14:37 63 15 109/56 98 08/16/16 14:32 65 19 113/72 97 08/16/16 14:32 65 19 08/16/16 14:27 63 17 125/74 100 08/16/16 14:27 62 17 08/16/16 14:22 66 23 135/81 98 08/16/16 14:22 65 23 08/16/16 14:17 16 08/16/16 14:17 64 16 138/69 08/16/16 14:12 66 23 08/16/16 14:12 66 23 136/76 90 08/16/16 14:07 65 18 08/16/16 14:07 65 18 156/71 96 08/16/16 14:02 67 24 145/72 93 08/16/16 14:02 67 24 08/16/16 13:57 68 17 155/75 94 08/16/16 13:57 68 17 08/16/16 13:52 70 16 08/16/16 13:52 70 16 158/75 93 08/16/16 13:48 166/70 08/16/16 13:47 36.4 73 16 166/70 95 Mask 10 08/16/16 07:42 36.4 58 20 168/72 95 Room Air Laboratory Results 24 Hours: Test 08/16/16 17:48 08/17/16 05:09 White Blood Count 13.97 K/uL Red Blood Count 3.92 M/uL Hemoglobin 11.9 g/dL 10.3 g/dL Hematocrit 36.5 % 31.4 % Mean Corpuscular Volume 93.1 fL Mean Corpuscular Hemoglobin 30.4 pg Mean Corpuscular Hemoglobin Concent 32.6 g/dl Platelet Count 209 K/uL Mean Platelet Volume 9.4 fL Neutrophils (%) (Auto) 91.5 % Lymphocytes (%) (Auto) 5.4 % Monocytes (%) (Auto) 2.8 % Eosinophils (%) (Auto) 0.0 % Basophils (%) (Auto) 0.1 % Neutrophils # (Auto) 12.78 K/uL Lymphocytes # (Auto) 0.76 K/uL Monocytes # (Auto) 0.39 K/uL Eosinophils # (Auto) 0.00 K/uL Basophils # (Auto) 0.01 K/uL Assessment & Plan Assessment: POD #1, Left shoulder fracture reversed TSA Plan: Limited PT/ OT as ordered- NO formal PT needed after D/C DVT proph- Plavix D/C planning home vs home w HH likely saturday As per medicine Inhouse Planning Pain Management: Morphine, PO Tylenol, Oxy IR DVT Prophylaxis: SCDs, other (Plavix) Discharge Planning Discharge Planning: home, home with home health, uncertain Pain Management: PO Tylenol, Oxy IR DVT Prophylaxis: other (plavix)
--- NOTE | 2016-08-17 07:30 | Discharge Instructions ---
Discharge Instructions Date of Service Aug 17, 2016. Admission Reason for Admission: Left Shoulder Proximal Humerus Fracture Discharge Discharge Diagnosis / Problem: Left shoulder fracture reversed TSA Discharge Goals Goal(s): Improve function Activity Recommendations Activity Limitations: as noted below . Instructions / Follow-Up Instructions / Follow-Up ACTIVITY RECOMMENDATIONS: SELF CARE INSTRUCTIONS AFTER TOTAL SHOULDER ARTHROPLASTY REVERSE A. You may do daily exercises as taught in physical therapy while in hospital. No lifting with the operative arm. B. You are to wear your sling/immobilizer at all times EXCEPT when performing your daily exercises and for hygiene purposes. C. You may perform dry, daily dressing changes. Please keep your incision covered. You may shower 48 hours after surgery. Do not apply soap or any ointment/ lotions directly over incision. Do not soak incision in bath tub/swimming pool. D. You may use ice as needed to operative shoulder. SPECIAL CARE INSTRUCTIONS: VERY IMPORTANT TO READ AND REVIEW A. There are a few signs you need to watch for after you are home. Call [facility] at [phone] if you experience any of the followin. Increased severe shoulder pain. Some pain is expected especially when you exercise. 2. Increased swelling in you shoulder or arm; pain or swelling in either upper extremity. 3. Any fluid drainage from the incision. 4. Shortness of breath or chest pain. B. Please call [facility] at [phone] if you have any questions or concerns about your operation or recovery. C. Call your physician if: 1. Temperature is greater than 101 degrees (F). 2. Pain is not relieved by prescribed pain medications. 3. Increase drainage or redness from incision. 4. Unanswered questions or concerns. FOLLOW UP VISIT: Please call [facility] at [phone] to schedule a follow up appointment with Dr. Lopez or his PA in 12-14 days from your surgery date. Current Hospital Diet Patient's current hospital diet: Regular Diet Discharge Diet Recommended Diet: Regular Diet Procedures Procedures Performed: Fracture reversed total shoulder arthoroplasty-cemented Pending Studies Studies pending at discharge: no Laboratory Results Hemoglobin A1c Test 08/14/16 09:40 Range/Units Estimated Average Glucose 103 mg/dl Hemoglobin A1c 5.2 4.5-5.6 % Lipid Panel Test 06/11/16 09:52 Range/Units Triglycerides Level 107 0-150 mg/dl Cholesterol Level 212 H 0-200 mg/dl HDL Cholesterol 70 mg/dl Cholesterol/HDL Ratio 3.0 LDL Cholesterol, Calculated 121 mg/dl Medical Emergencies . Who to Call and When: Medical Emergencies: If at any time you feel your situation is an emergency, please call 911 immediately. . Non-Emergent Contact Non-Emergency issues call your: Primary Care Provider . "Provider Documentation" section prepared by Michael Jessica. . VTE Core Measure Inpt VTE Proph given/why not?: Other Anticoagulation (plavix), SCD's [place] Drug Monitoring Program Search Results: patient reviewed within database, no issues identified
--- NOTE | 2016-08-17 08:01 | Anesthesiology Progress Note ---
Anesthesia Post Op Note Date & Time Aug 17, 2016 at 08:00 Vital Signs Pain Intensity: 10.0 Vital Signs Past 12 Hours Date Time Temp Pulse Resp B/P (MAP) Pulse Ox O2 Delivery O2 Flow Rate FiO2 08/17/16 07:51 36.5 81 17 133/70 (91) 91 Room Air 08/17/16 07:30 92 Room Air 08/17/16 03:40 36.3 76 16 100/59 (73) 92 Room Air 08/16/16 22:52 36.4 75 16 110/68 (82) 92 Room Air 08/16/16 21:47 92 Room Air 08/16/16 20:33 69 101/63 (76) Notes Mental Status: alert / awake / arousable, participated in evaluation Pt Amnestic to Procedure: Yes Nausea / Vomiting: adequately controlled Pain: adequately controlled Airway Patency, RR, SpO2: stable & adequate BP & HR: stable & adequate Hydration State: stable & adequate Anesthetic Complications: no major complications apparent
[2016-08-17] MEDS: MoRPHine SULFATE 4 MG/ML 1 ML CARP\\VIAL IV PRN ×2 (08:56→11:08)
[2016-08-17] MEDS ORDERED: NON-FORMULARY MEDICATION (Flaxseed (Linseed) (Flaxseed Oil) 1 CAP) PO SCH (09:00)
[2016-08-17] MEDS ORDERED: RESVERATROL PO SCH (09:00)
[2016-08-17] MEDS: PANTOprazole SOD 40 MG TAB PO SCH (09:03)
[2016-08-17] MEDS: DOCUSATE SODIUM 100 MG CAP PO SCH ×2 (09:03→22:12)
[2016-08-17] MEDS: CHLORTHALIDONE 25 MG TAB PO SCH (09:04)
[2016-08-17] MEDS: TOCOPHERYL, DL-ALPHA 400 INTER.UNIT CAP PO SCH (09:04)
[2016-08-17] MEDS: METOPROLOL TARTRATE 50 MG TAB PO SCH ×2 (09:04→21:37)
[2016-08-17] MEDS: MULTIVITAMIN TAB PO SCH (09:04)
[2016-08-17] MEDS: CLOPIDOGREL BISULFATE 75 MG TAB PO SCH (09:04)
--- NOTE | 2016-08-17 10:27 | Hospitalist Progress Note ---
Hospitalist Progress Note Date of Service Aug 17, 2016. Subjective Pt evaluation today including: conversation w/ patient, conversation w/ family , physical exam, chart review, lab review, review of studies, review of inpatient medication list Patient seen and evaluated. No acute events overnight. Initially saw patient with PT in room and patient alert and looked comfortable. Planned to come back after PT for examination. On reassessment my assessment was limited due to pain. Patient appears uncomfortable and largely keeps eyes closed. Focusing on her breathing. On previous admissions patient known to hallucinate on morphine and will monitor for delirium. No other verbalized complaints at this time. Additional Comments: Deferred due to pain. Denies complaints other then pain but did not perform ROS questions Medications Current Inpatient Medications Medications (Trade) Dose Ordered Sig/Yuan Route Start Time Stop Time Status Last Admin Dose Admin Cholecalciferol (Vitamin D Tab) 1,000 inter.unit QPM PO 08/16/16 21:00 09/15/16 20:59 08/16/16 20:35 1,000 INTER.UNIT Clopidogrel Bisulfate (plAVix TAB) 75 mg QAM PO 08/17/16 09:00 09/16/16 08:59 08/17/16 09:04 75 MG Levothyroxine Sodium (Synthroid Tab) 125 mcg DAILYBB PO 08/17/16 06:00 09/16/16 05:59 08/17/16 05:53 125 MCG Metoprolol Tartrate (Lopressor Tab) 50 mg BID PO 08/16/16 21:00 09/15/16 20:59 08/17/16 09:04 50 MG Mirabegron (Myrbetriq Er) 25 mg QPM PO 08/16/16 21:00 09/15/16 20:59 08/16/16 20:35 25 MG Potassium Chloride (Klor-Con Tab) 20 meq 1200 PO 08/17/16 12:00 09/16/16 11:59 Potassium Chloride (Klor-Con Tab) 40 meq 1700 PO 08/16/16 17:00 09/15/16 16:59 08/16/16 16:52 40 MEQ Potassium Chloride (Klor-Con Tab) 20 meq 2100 PO 08/16/16 21:00 09/15/16 20:59 08/16/16 20:34 20 MEQ Ranitidine HCl (zANTac TAB) 150 mg QPM PO 08/16/16 21:00 09/15/16 20:59 08/16/16 20:35 150 MG Chlorthalidone (Hygroton Tab) 25 mg DAILY PO 08/17/16 09:00 09/16/16 08:59 08/17/16 09:04 25 MG Miscellaneous Information (Order Awaiting Action) 1 ea QS N/A 08/16/16 16:00 09/15/16 15:59 Miscellaneous Information (Order Awaiting Action) 1 ea QS N/A 08/16/16 16:00 09/15/16 15:59 [id number] Acetate (Vitamin E Cap) 400 interunit QAM PO 08/17/16 09:00 09/16/16 08:59 08/17/16 09:04 400 INTERUNIT Diphenhydramine HCl (Benadryl Cap) 25 mg Q8 PRN PO 08/16/16 14:00 09/15/16 13:59 Zolpidem Tartrate (Ambien Tab) 5 mg HSZ PRN PO 08/16/16 14:00 09/15/16 13:59 Ondansetron HCl (Zofran Inj) 4 mg Q6H PRN IV 08/16/16 14:00 09/15/16 13:59 Pantoprazole Sodium (Protonix Tab) 40 mg QAM PO 08/17/16 09:00 09/16/16 08:59 08/17/16 09:03 40 MG Oxycodone HCl (Roxicodone Immediate Rel Tab) `1-2 TABS FOR PAIN `1 TAB... Q4H PRN PO 08/16/16 14:00 08/30/16 13:59 08/17/16 07:28 10 MG Acetaminophen (Tylenol Tab) 1,000 mg Q8 PO 08/16/16 16:00 09/15/16 15:59 08/17/16 05:53 1,000 MG Morphine Sulfate (MoRPHine SULFATE INJ) 2 mg Q2H PRN IV 08/16/16 14:00 08/30/16 13:59 Naloxone HCl (Narcan Inj) 0.1 mg Q2M PRN IV 08/16/16 14:00 09/15/16 13:59 Magnesium Hydroxide (Milk Of Magnesia Susp) 30 ml Q6H PRN PO 08/16/16 14:00 09/15/16 13:59 Bisacodyl (Dulcolax Supp) 10 mg DAILY PRN NV 08/16/16 14:00 09/15/16 13:59 Sodium Biphosphate/ Sodium Phosphate (Fleet Enema) 132 ml DAILY PRN NV 08/16/16 14:00 09/15/16 13:59 Docusate Sodium (coLACE CAP) 100 mg BID PO 08/16/16 21:00 09/15/16 20:59 08/17/16 09:03 100 MG Multivitamins (Multivitamin Tab) 1 tab DAILY PO 08/17/16 09:00 09/16/16 08:59 08/17/16 09:04 1 TAB Sodium Chloride 1,000 ml @ 100 mls/hr Q10H IV 08/16/16 14:00 09/15/16 13:59 08/17/16 09:10 100 MLS/HR Morphine Sulfate (MoRPHine SULFATE INJ) 4 mg Q2H PRN IV 08/16/16 14:30 08/30/16 14:29 08/17/16 08:56 4 MG Menthol (Nice Shalonda) 1 shalonda PRN PRN PO 08/16/16 21:00 09/15/16 20:59 Objective Vital Signs Date Time Temp Pulse Resp B/P (MAP) Pulse Ox O2 Delivery O2 Flow Rate FiO2 08/17/16 07:51 36.5 81 17 133/70 (91) 91 Room Air 08/17/16 07:30 92 Room Air 08/17/16 03:40 36.3 76 16 100/59 (73) 92 Room Air 08/16/16 22:52 36.4 75 16 110/68 (82) 92 Room Air 08/16/16 21:47 92 Room Air 08/16/16 20:33 69 101/63 (76) 08/16/16 19:36 36.4 68 16 112/68 (83) 92 Nasal Cannula 2.0 08/16/16 19:25 Nasal Cannula 2.0 08/16/16 18:10 36.5 73 18 106/63 (77) 94 Nasal Cannula 2.0 08/16/16 17:20 36.5 60 16 124/76 (92) 96 Nasal Cannula 3.0 08/16/16 16:20 36.4 61 16 123/68 (86) 95 Nasal Cannula 3.0 08/16/16 15:50 36.4 62 16 125/74 (91) 95 Nasal Cannula 3.0 08/16/16 15:20 36.3 62 16 114/67 (83) 93 Nasal Cannula 3.0 08/16/16 15:20 94 Nasal Cannula 3.0 08/16/16 15:20 93 Nasal Cannula 3.0 08/16/16 15:08 58 13 94 08/16/16 15:08 55 13 08/16/16 15:07 115/58 08/16/16 15:03 62 16 100 08/16/16 15:03 61 16 08/16/16 15:02 117/59 08/16/16 14:58 60 13 96 08/16/16 14:58 60 13 08/16/16 14:57 58 17 122/55 100 08/16/16 14:57 59 17 08/16/16 14:55 36.2 60 16 123/55 99 Nasal Cannula 4 08/16/16 14:52 61 14 08/16/16 14:52 61 14 123/55 97 08/16/16 14:47 59 12 112/66 100 08/16/16 14:47 59 12 08/16/16 14:42 63 16 08/16/16 14:42 64 16 119/63 100 08/16/16 14:37 63 15 08/16/16 14:37 63 15 109/56 98 08/16/16 14:32 65 19 113/72 97 08/16/16 14:32 65 19 08/16/16 14:27 63 17 125/74 100 08/16/16 14:27 62 17 08/16/16 14:22 66 23 135/81 98 08/16/16 14:22 65 23 08/16/16 14:17 16 08/16/16 14:17 64 16 138/69 08/16/16 14:12 66 23 08/16/16 14:12 66 23 136/76 90 08/16/16 14:07 65 18 08/16/16 14:07 65 18 156/71 96 08/16/16 14:02 67 24 145/72 93 08/16/16 14:02 67 24 08/16/16 13:57 68 17 155/75 94 6/1/17 13:57 68 17 08/16/16 13:52 70 16 08/16/16 13:52 70 16 158/75 93 08/16/16 13:48 166/70 08/16/16 13:47 36.4 73 16 166/70 95 Mask 10 Physical Exam General Appearance: WD/WN, + mild distress (pain related) Eyes: sclerae normal ENT: hearing grossly normal Neck: supple, no JVD Respiratory/Chest: lungs clear, normal breath sounds, no respiratory distress, no accessory muscle use Cardiovascular: regular rate, rhythm, no gallop, no murmur Abdomen: normal bowel sounds, non tender, soft Extremities: no pedal edema, no calf tenderness Neurologic/Psychiatric: alert Skin: normal color, warm/dry Laboratory Results Last 24 Hours Test 08/16/16 17:48 08/17/16 05:09 White Blood Count 13.97 K/uL 12.23 K/uL Red Blood Count 3.92 M/uL 3.41 M/uL Hemoglobin 11.9 g/dL 10.3 g/dL Hematocrit 36.5 % 31.4 % Mean Corpuscular Volume 93.1 fL 92.1 fL Mean Corpuscular Hemoglobin 30.4 pg 30.2 pg Mean Corpuscular Hemoglobin Concent 32.6 g/dl 32.8 g/dl Platelet Count 209 K/uL 196 K/uL Mean Platelet Volume 9.4 fL 9.4 fL Neutrophils (%) (Auto) 91.5 % Lymphocytes (%) (Auto) 5.4 % Monocytes (%) (Auto) 2.8 % Eosinophils (%) (Auto) 0.0 % Basophils (%) (Auto) 0.1 % Neutrophils # (Auto) 12.78 K/uL Lymphocytes # (Auto) 0.76 K/uL Monocytes # (Auto) 0.39 K/uL Eosinophils # (Auto) 0.00 K/uL Basophils # (Auto) 0.01 K/uL RDW Standard Deviation 48.1 fL 47.2 fL RDW Coefficient of Variation 14.1 % 14.1 % Immature Granulocyte % (Auto) 0.2 % Immature Granulocyte # (Auto) 0.03 K/uL Sodium Level 138 mmol/L 134 mmol/L Potassium Level 4.0 mmol/L 4.3 mmol/L Chloride Level 100 mmol/L 99 mmol/L Carbon Dioxide Level 29 mmol/L 28 mmol/L Anion Gap 9.0 mmol/L 7.0 mmol/L Blood Urea Nitrogen 17 mg/dl 17 mg/dl Creatinine 0.80 mg/dl 0.85 mg/dl Est Creatinine Clear Calc Drug Dose 42.4 ml/min 39.9 ml/min Estimated GFR () 79.0 73.4 Estimated GFR (Non- 68.2 63.4 BUN/Creatinine Ratio 21.0 20.4 Random Glucose 145 mg/dl 119 mg/dl Calcium Level 8.7 mg/dl 8.0 mg/dl Assessment and Plan Ms. Mir is an 81 y/o female who is S/P L Reverse Total Shoulder Arthroplasty 2 /2 Proximal Humerus Fx from Fall S/P L Reverse Total Shoulder Arthroplasty by Dr. Lopez: - Pain management, PT/OT, DVT prophylaxis per primary service - DVT prophylaxis - Plavix Hypertension: STABLE - Chlorthalidone 25 mg daily and Lopressor 50 mg BID Hypothyroidism: STABLE - Synthroid 125 mcg daily Overactive Bladder: - Myrbetriq 25 mg daily H/O TIA: - Plavix 75 mg daily Disposition: Per primary - likely D/C tomorrow Thank you for the consultation. No further recommendations. Can continue home medications as previously prescribed. At this time Hospitalists will sign off. Please contact the service if acute changes in medical status develops. Continued [facility] stay due to: inadequate oral pain control Discharge planning: home with home health
[2016-08-17] MEDS ORDERED: POTASSIUM CHLORIDE 20 MEQ TABCR PO SCH (12:00)
[2016-08-17] MEDS ORDERED: HYDROmorphone INJ 1 MG/ML SYR IV PRN (12:45)
[2016-08-17] MEDS: KETOROLAC TROMETHAMINE 15 MG/ML VIAL IV PRN (13:25)
[2016-08-17] MEDS ORDERED: NURSING VERBAL MED ORDER ONE (17:15)
[2016-08-17] MEDS ORDERED: HydrALAZINE HCL 20 MG/ML VIAL IV. PRN (17:30)
[2016-08-17] MEDS: POTASSIUM CHLORIDE 20 MEQ TABCR PO SCH ×2 (17:51→21:38)
[2016-08-17] MEDS: CHOLECALCIFEROL 1000 INTER.UNIT TAB PO SCH (22:12)
[2016-08-17] MEDS: RANITIDINE HCL 150 MG TAB PO SCH (22:12)
[2016-08-17] MEDS: MIRABEGRON ER 25 MG TAB PO SCH (22:12)
[2016-08-18] MEDS: KETOROLAC TROMETHAMINE 15 MG/ML VIAL IV PRN ×2 (01:57→10:09)
[2016-08-18 03:05] VITALS: BP 183/77
[2016-08-18 03:10] VITALS: BP 136/76
[2016-08-18] MEDS: OXYCODONE HCL IR 5 MG TAB (IMMEDIATE RELEASE) PO PRN (04:20)
[2016-08-18] MEDS: ACETAMINOPHEN 500 MG TAB PO SCH (05:50)
[2016-08-18] MEDS: LEVOTHYROXINE 125 MCG TAB PO SCH (05:51)
[2016-08-18 05:53] LABS: HEMATOCRIT 29.3 % (37-47); MEAN CELL VOLUME 92.7 fL (80-100); MEAN CORPUSCULAR HEMOGLOBIN 31.3 pg (25-34); MEAN CORPUSCULAR HGB CONC 33.8 g/dl (32-36); MEAN PLATELET VOLUME 9.4 fL (7.4-10.4); PLATELET COUNT 174 K/uL (130-400); RED BLOOD COUNT 3.16 M/uL (4.2-5.4); WHITE BLOOD COUNT 9.12 K/uL (4.8-10.8)
[2016-08-18] MEDS: SODIUM CHLORIDE 0.45% 1000ML 1,000 ML IV SCH (05:58)
[2016-08-18 06:26] LABS: BUN/CREATININE RATIO 22.8 (10-20); CALCIUM 7.9 mg/dl (8.5-10.1); CREATININE 0.74 mg/dl (0.60-1.20)
[2016-08-18] MEDS ORDERED: [UNRECOGNIZED DRUG - OTHER] PO SCH (06:30)
[2016-08-18] MEDS ORDERED: RISEDRONATE SODIUM PO SCH (06:30)
[2016-08-18 07:33] VITALS: BP 147/70; PULSE 63; TEMP 36.4; O2SAT 94
--- NOTE | 2016-08-18 07:43 | Orthopedic Progress Note ---
Orthopedic Progress Note Date of Service Aug 18, 2016. Subjective Post OP Day: 2 Reports: feeling well Objective N/V intact (Fingers mobile), dressing C/D/I Date Time Temp Pulse Resp B/P (MAP) Pulse Ox O2 Delivery O2 Flow Rate FiO2 08/18/16 07:33 36.4 63 18 147/70 (95) 94 Room Air 08/18/16 03:10 136/76 (96) 08/18/16 03:05 183/77 (112) 08/17/16 23:40 Room Air 08/17/16 22:53 36.9 75 16 117/66 (83) 95 Room Air 08/17/16 21:35 120/61 (80) 08/17/16 16:57 176/73 (107) 08/17/16 16:18 37.2 80 17 173/72 (105) 97 Room Air 08/17/16 15:57 Room Air 2.0 08/17/16 10:00 83 08/17/16 07:51 36.5 81 17 133/70 (91) 91 Room Air Laboratory Results 24 Hours: Test 08/18/16 05:08 Hematocrit 29.3 % Hemoglobin 9.9 g/dL Assessment & Plan Assessment: POD #2, Left shoulder fracture reverse TSA Plan: Limited PT/ OT as ordered- NO formal PT needed after D/C DVT proph- Plavix D/C planning: home w HH likely saturday As per medicine Inhouse Planning Pain Management: Morphine, PO Tylenol, Oxy IR DVT Prophylaxis: SCDs, other (Plavix) Discharge Planning Discharge Planning: home, home with home health, uncertain Pain Management: PO Tylenol, Oxy IR DVT Prophylaxis: other (plavix)
[2016-08-18] MEDS ORDERED: OXYC-57 PO (07:45)
[2016-08-18 08:13] VITALS: BP 112/70; PULSE 67; TEMP 36.8; O2SAT 96
[2016-08-18] MEDS: PANTOprazole SOD 40 MG TAB PO SCH (08:33)
[2016-08-18] MEDS: CHLORTHALIDONE 25 MG TAB PO SCH (08:33)
[2016-08-18] MEDS: TOCOPHERYL, DL-ALPHA 400 INTER.UNIT CAP PO SCH (08:33)
[2016-08-18] MEDS: DOCUSATE SODIUM 100 MG CAP PO SCH (08:33)
[2016-08-18] MEDS: MULTIVITAMIN TAB PO SCH (08:33)
[2016-08-18 09:45] VITALS: TEMP 36.4; O2SAT 94
[2016-08-18] MEDS: CLOPIDOGREL BISULFATE 75 MG TAB PO SCH (10:05)
[2016-08-18] MEDS: METOPROLOL TARTRATE 50 MG TAB PO SCH (10:05)
[2016-08-18 10:07] VITALS: BP 138/59; PULSE 69; O2SAT 95
--- NOTE | 2016-08-26 12:01 | DISCHARGE SUMMARY ---
HISTORY OF PRESENT ILLNESS: This is an 81-year-old female patient of Dr. Lopez's complaining of left shoulder injury status post a fall in her home. She had been diagnosed with a displaced fracture of her proximal humerus, which was confirmed with CT scanning. The patient elected to proceed with a left rib fracture reverse total shoulder arthroplasty. PAST MEDICAL HISTORY: Heart murmur, hypertension, hypercholesterolemia, history of TIA, hypothyroidism, spine problems, sciatica, acid reflux and a history of basal cell carcinoma. POSTOPERATIVE COURSE: The patient underwent a left fracture reversed total shoulder arthroplasty with repair of tuberosities on 08/16/2016. She was followed closely with medical consultation, limited physical therapy and pain control. The patient did well postoperatively with no complications and was discharged on postoperative day #2. PHYSICAL EXAMINATION ON DISCHARGE: Left shoulder incision was clean, dry and intact. Nidhi were intact. Skin edges were approximated well. There was no redness or drainage. Neurologically and neurovascularly she was intact in her left upper extremity. DIAGNOSES: Status post left shoulder fracture reversed total shoulder arthroplasty with a history of heart murmur, hypertension, hypercholesterolemia, transient ischemic attack, hypothyroidism, spine problems, sciatica, acid reflux and basal cell carcinoma. PLAN: The patient was discharged home with home health services. She will continue her preadmission medications with the addition of pain medications. She will require no physical therapy initially until she follows up in the office. She will wear her sling. She may loosen her sling to do gentle elbow range of motion and hand and wrist range of motion. Otherwise, she will wear her sling fulltime. She will follow up with Dr. Lopez as scheduled as an outpatient.
== END 2016-08-18 12:06 | disposition home health service (06) | DRG 483 ==
LOC: C.ACU 06:53 → C.3E 07:40 → ENRESERV 14:35
PROVIDERS: ADMIT Orthopaedic Surgery Sports Medicine; ATTEND Orthopaedic Surgery Sports Medicine
PROC: 0RRK00Z Replacement of Left Shoulder Joint with Reverse Ball and Socket Synthetic Substitute, Open Approach (ICD-10-PCS; principal; 2016-08-16 09:30)
PROC: 0LN40ZZ Release Left Upper Arm Tendon, Open Approach (ICD-10-PCS; principal; 2016-08-16 09:30)
PROC: 0PUG07Z Supplement Left Humeral Shaft with Autologous Tissue Substitute, Open Approach (ICD-10-PCS; principal; 2016-08-16 09:30)
DX: S42.202G Unspecified fracture of upper end of left humerus, subsequent encounter for fracture with delayed healing (principal); M25.812 Other specified joint disorders, left shoulder; I10 Essential (primary) hypertension; R78.5 Finding of other psychotropic drug in blood; E03.9 Hypothyroidism, unspecified; N32.81 Overactive bladder; K21.9 Gastro-esophageal reflux disease without esophagitis; E78.00 Pure hypercholesterolemia, unspecified; Z79.899 Other long term (current) drug therapy; Z79.02 Long term (current) use of antithrombotics/antiplatelets; Z86.73 Personal history of transient ischemic attack (TIA), and cerebral infarction without residual deficits; Z85.828 Personal history of other malignant neoplasm of skin; W19.XXXA Unspecified fall, initial encounter; Y92.009 Unspecified place in unspecified non-institutional (private) residence as the place of occurrence of the external cause; Y99.8 Other external cause status

== ENCOUNTER → 2016-08-23 | Outpatient (CLI) | payer OTHER ==
[~2016-08-23] MED LIST changes: -ACETAMINOPHEN 500 MG TAB PO SCH; -CLINDAMYCIN 600 MG/54 ML D5W 54 ML IV SCH; -CeleBREX 200 MG CAP PO SCH; -DEXAMETHASONE 4 MG TAB PO SCH; -FAMOTIDINE 20 MG TAB PO SCH; -GABAPENTIN 300 MG CAP PO SCH; -LACTATED RINGER'S 1000ML IV SCH; -METOCLOPRAMIDE HCL 10 MG TAB PO SCH
[2016-08-23 13:33] LABS: URINE APPEARANCE CLEAR (CLEAR); URINE BILIRUBIN NEG (NEG); URINE COLOR DK YELLOW; URINE EPITHELIAL CELL AUTO >30 /lpf (0-5); URINE NITRITE NEG (NEG); URINE PH 5.5 (4.5-7.5); URINE SPECIFIC GRAVITY 1.029 (1.000-1.030); UROBILINOGEN NEG (NEG)
[2016-08-23 13:35] LABS: MANUAL MICROSCOPIC REQUIRED? NO; REVIEW REQ? NO
== END | disposition home or self-care (01) ==
LOC: C.LABMFLN 11:27
PROVIDERS: ATTEND Family Medicine
DX: R35.0 Frequency of micturition (principal)

== ENCOUNTER → 2016-09-12 | Outpatient (CLI) | payer OTHER ==
[2016-09-12 18:11] LABS: BASO % 0.2 %; BASO ABS # 0.03 K/uL (0-0.2); COMPLETE YES; HEMATOCRIT 30.9 % (37-47); IG% 0.2 %; LYMPH % 12.8 %; LYMPH ABS # 1.64 K/uL (1.2-3.4); MEAN CELL VOLUME 91.4 fL (80-100); MEAN CORPUSCULAR HEMOGLOBIN 29.3 pg (25-34); MEAN PLATELET VOLUME 9.3 fL (7.4-10.4); MONO % 12.7 %; NEUT % 72.1 %; PLATELET COUNT 418 K/uL (130-400); RED BLOOD COUNT 3.38 M/uL (4.2-5.4); WHITE BLOOD COUNT 12.81 K/uL (4.8-10.8)
[2016-09-12 18:21] LABS: BLOOD UREA NITROGEN 17 mg/dl (7-18); BUN/CREATININE RATIO 20.7 (10-20); CALCIUM 10.3 mg/dl (8.5-10.1); CARBON DIOXIDE 28 mmol/L (21-32); CHLORIDE 102 mmol/L (98-107); CREATININE 0.83 mg/dl (0.60-1.20); GLUCOSE 96 mg/dl (70-99); SODIUM 135 mmol/L (136-145)
== END | disposition home or self-care (01) ==
LOC: C.LABMFLN 12:21
PROVIDERS: ATTEND Family Medicine
DX: I10 Essential (primary) hypertension (principal); S42.302A Unspecified fracture of shaft of humerus, left arm, initial encounter for closed fracture; X58.XXXA Exposure to other specified factors, initial encounter; E03.9 Hypothyroidism, unspecified

== ENCOUNTER → 2016-09-24 | Outpatient (CLI) | payer OTHER ==
[2016-09-24 13:34] LABS: BASO % 0.4 %; BASO ABS # 0.05 K/uL (0-0.2); COMPLETE YES; EOS % 1.6 %; HEMATOCRIT 33.6 % (37-47); IG% 1.1 %; LYMPH % 9.5 %; MEAN CELL VOLUME 87.3 fL (80-100); MEAN CORPUSCULAR HEMOGLOBIN 28.1 pg (25-34); MEAN CORPUSCULAR HGB CONC 32.1 g/dl (32-36); MEAN PLATELET VOLUME 8.9 fL (7.4-10.4); MONO % 9.5 %; NEUT % 77.9 %; PLATELET COUNT 472 K/uL (130-400); RED BLOOD COUNT 3.85 M/uL (4.2-5.4); WHITE BLOOD COUNT 12.57 K/uL (4.8-10.8)
[2016-09-24 13:57] LABS: BLOOD UREA NITROGEN 10 mg/dl (7-18); BUN/CREATININE RATIO 14.3 (10-20); CALCIUM 9.6 mg/dl (8.5-10.1); CARBON DIOXIDE 27 mmol/L (21-32); CHLORIDE 100 mmol/L (98-107); CREATININE 0.73 mg/dl (0.60-1.20); GLUCOSE 99 mg/dl (70-99); SODIUM 136 mmol/L (136-145)
== END | disposition home or self-care (01) ==
LOC: C.LABMFLN 07:45
PROVIDERS: ATTEND Family Medicine
DX: D50.9 Iron deficiency anemia, unspecified (principal); I95.1 Orthostatic hypotension

== ENCOUNTER → 2016-10-26 | Outpatient (CLI) | payer OTHER ==
[2016-10-26 17:53] LABS: HEMATOCRIT 34.6 % (37-47)
[2016-10-26 18:43] LABS: THYROID STIMULATING HORMONE 1.19 uIu/ml (0.300-4.500)
== END | disposition home or self-care (01) ==
LOC: C.LABMFLN 15:10
PROVIDERS: ATTEND Family Medicine
DX: E03.9 Hypothyroidism, unspecified (principal); D50.9 Iron deficiency anemia, unspecified

== ENCOUNTER → 2017-01-04 | Outpatient (CLI) | payer OTHER ==
[2017-01-04 13:41] LABS: BASO % 0.2 %; BASO ABS # 0.02 K/uL (0-0.2); COMPLETE YES; EOS % 2.5 %; HEMATOCRIT 39.1 % (37-47); IG% 0.4 %; LYMPH % 18.5 %; MEAN CELL VOLUME 90.1 fL (80-100); MEAN CORPUSCULAR HGB CONC 32.2 g/dl (32-36); MEAN PLATELET VOLUME 9.5 fL (7.4-10.4); MONO % 9.4 %; PLATELET COUNT 215 K/uL (130-400); RED BLOOD COUNT 4.34 M/uL (4.2-5.4); WHITE BLOOD COUNT 8.11 K/uL (4.8-10.8)
[2017-01-04 14:21] LABS: ALT/SGPT 14 U/L (12-78); AST/SGOT 13 U/L (15-37); BLOOD UREA NITROGEN 13 mg/dl (7-18); BUN/CREATININE RATIO 17.3 (10-20); CALCIUM 9.4 mg/dl (8.5-10.1); CARBON DIOXIDE 29 mmol/L (21-32); CHLORIDE 104 mmol/L (98-107); CHOLESTEROL 217 mg/dl (0-200); CREATININE 0.75 mg/dl (0.60-1.20); GLUCOSE 85 mg/dl (70-99); MAGNESIUM 1.7 mg/dl (1.8-2.4); SODIUM 138 mmol/L (136-145)
[2017-01-04 14:31] LABS: CHOLESTEROL/HDL RATIO 3.1; HDL CHOLESTEROL 69 mg/dl; LDL CHOLESTEROL CALCULATED 123 mg/dl; THYROID STIMULATING HORMONE 0.971 uIu/ml (0.300-4.500); TOTAL IRON BINDING CAPACITY 350 mcg/dl (250-450); TRIGLYCERIDES 126 mg/dl (0-150); VERY LOW DENSITY LIPOPROT CALC 25 mg/dl
== END | disposition home or self-care (01) ==
LOC: C.LABMFLN 11:19
PROVIDERS: ATTEND Family Medicine
DX: E78.5 Hyperlipidemia, unspecified (principal); E03.9 Hypothyroidism, unspecified; I10 Essential (primary) hypertension; D50.9 Iron deficiency anemia, unspecified; E83.42 Hypomagnesemia